=== PATIENT | female | born 1990 | race Caucasian/White ===

== ENCOUNTER 2016-08-05 18:16 | Emergency (ER) | payer OTHER ==
[~2016-08-05] VITALS: Ht 175.2 cm; Wt 90.7 kg
[~2016-08-05 18:16] MED LIST: AMOXICILLIN500 MG PO; AMOXICILLIN875 MG PO; AMOXIL500 MG PO; ATARAX25 MG PO; CARAFATE1 G1 PO; CATAFLAM50 MG PO; CLEOCIN150 MG PO; COMPAZINE10 MG PO; DONNATAL1 CA1 PO; DONNATAL1 TAB PO; FAMOTIDINE20 MG PO; FLEXERIL5 MG PO; IBUPROFEN400 MG PO; IRON324 M1 PO; MACROBID100 M1 PO; MOTRIN800 MG PO; NKHM PO; NORCO 5-325 TA1 EACH PO; PEPCID20 MG PO; PERCOCET 325 MG1 TA2 PO; PHENERGAN12.5 M1 PO; PHENERGAN25 M1 PO; PREDNICOT20 MG PO; PRENATAL1 TA3 PO; PRENTAL 1 PLUS1 TAB PO; PREVACID30 M2 PO; PRILOSEC20 MG PO; PRILOSEC40 MG PO; PROTONIX20 MG PO; SUDAFED60 MG PO; TRAMADOL HCL50 MG PO; ULTRAM50 MG PO; VICODIN 5/500 505 MG PO; ZANTAC 150150 MG PO; ZANTAC150 MG PO; ZOFRAN ODT4 MG SL; Zofran4 MG PO
[2016-08-05] MEDS ORDERED: CYCLOBENZAPRINE10 MG PO (20:23)
[2016-08-05] MEDS ORDERED: MEDROL DOSEPAK4 MG PO (20:23)
[2016-08-05] MEDS ORDERED: NAPROSYN500 MG PO (20:23)
[2016-08-31] MEDS ORDERED: CEFUROXIME AXE250 MG PO (19:36)
[2016-08-31] MEDS ORDERED: ZOFRAN ODT4 MG SL (19:38)
== END 2016-08-05 20:27 | disposition home or self-care (01) ==
LOC: ED 18:16
DX: S33.5XXA Sprain of ligaments of lumbar spine, initial encounter (principal); Z88.1 Allergy status to other antibiotic agents; Z88.2 Allergy status to sulfonamides; Z90.49 Acquired absence of other specified parts of digestive tract; X58.XXXA Exposure to other specified factors, initial encounter; Y93.89 Activity, other specified; Y92.9 Unspecified place or not applicable; Y99.9 Unspecified external cause status

== ENCOUNTER 2017-01-29 20:32 | Emergency (ER) | payer OTHER ==
[~2017-01-29] VITALS: Ht 175.2 cm; Wt 59.0 kg
[~2017-01-29 20:32] MED LIST changes: +CEFUROXIME AXE250 MG PO; +CYCLOBENZAPRINE10 MG PO; +MEDROL DOSEPAK4 MG PO; +NAPROSYN500 MG PO
[2017-01-29 21:16] LABS: BASO # 0.1 10*3/uL (0.0-0.1); BASO % 0.7 % (0.0-1.0); EOS # 0.3 10*3/uL (0.0-0.4); HEMATOCRIT 37.8 % (37.0-47.0); HEMOGLOBIN 12.2 g/dl (12.0-16.0); LYMPH # 4.2 10*3/uL (1.3-4.4); LYMPH % 39.6 % (27.0-41.0); MEAN CELL VOLUME 82.2 fl (81.0-99.0); MEAN CORPUSCULAR HGB 26.5 pg (27.0-31.0); MEAN CORPUSCULAR HGB CONC 32.3 g/dl (33.0-37.0); MEAN PLATELET VOLUME 12.1 fl (9.6-12.3); MONO # 0.7 10*3/uL (0.1-1.0); MONO % 6.6 % (3.0-9.0); NEUT # 5.3 10*3/uL (2.3-7.9); NEUT % 49.9 % (47.0-73.0); PLATELET COUNT AUTOMATED 242 10*3/uL (130-400); RED CELL DISTRI WIDTH 15.5 % (0-14.5); WHITE BLOOD COUNT 10.5 10*3/uL (4.8-10.8)
[2017-01-29 21:21] LABS: BILIRUBIN NEGATIVE (NEGATIVE); BLOOD NEGATIVE (NEGATIVE); CLARITY CLEAR (CLEAR); COLOR YELLOW (YELLOW); GLUCOSE NEGATIVE (NEGATIVE); KETONE NEGATIVE (NEGATIVE); LEUKO ESTERASE 1+ (NEGATIVE); NITRITE POSITIVE (NEGATIVE); PROTEIN NEGATIVE (NEGATIVE); SPECIFIC GRAVITY <= 1.005 (1.005-1.030); UROBILINOGEN 0.2 E.U./dl (0.2-1.0)
[2017-01-29 21:30] LABS: URINE REFLEX COMMENT YES (NO)
[2017-01-29 21:31] LABS: BACTERIA 3+
[2017-01-29 21:31] LABS: ALBUMIN 3.5 gm/dl (3.1-4.5); ALKALINE PHOSPHATASE 77 U/L (45-117); BILIRUBIN, TOTAL 0.4 mg/dl (0.2-1.0); BUN 11 mg/dl (7-24); CARBON DIOXIDE 28 mmol/L (21-32); CHLORIDE 105 mmol/L (98-107); EST GLOM FILT AFRICAN AMERICAN > 60 ml/min; GLUCOSE 89 mg/dL (65-99); POTASSIUM 3.7 mmol/L (3.5-5.1); SGOT/AST 14 IU/L (3-35); SGPT/ALT 17 U/L (12-78); SODIUM 139 mmol/L (136-145)
== END 2017-01-29 21:58 | disposition home or self-care (01) ==
LOC: ED 20:32
PROVIDERS: Physician Assistant
DX: A64 Unspecified sexually transmitted disease (principal); A59.9 Trichomoniasis, unspecified; Z90.49 Acquired absence of other specified parts of digestive tract; Z87.442 Personal history of urinary calculi; Z88.1 Allergy status to other antibiotic agents; Z88.2 Allergy status to sulfonamides

== ENCOUNTER 2017-03-11 02:41 | Emergency (ER) | payer OTHER ==
[~2017-03-11] VITALS: Ht 175.2 cm; Wt 90.7 kg
== END 2017-03-11 04:31 | disposition home or self-care (01) ==
LOC: ED 02:41
DX: R51 Headache (principal); R20.0 Anesthesia of skin; K21.9 Gastro-esophageal reflux disease without esophagitis; F17.200 Nicotine dependence, unspecified, uncomplicated; Z88.1 Allergy status to other antibiotic agents

== ENCOUNTER 2017-04-19 23:28 | Emergency (ER) | payer OTHER ==
[~2017-04-19] VITALS: Ht 175.2 cm; Wt 90.7 kg
== END 2017-04-20 01:01 | disposition home or self-care (01) ==
LOC: ED 23:28
DX: R51 Headache (principal); F17.200 Nicotine dependence, unspecified, uncomplicated; Z90.49 Acquired absence of other specified parts of digestive tract; K21.9 Gastro-esophageal reflux disease without esophagitis; Z88.1 Allergy status to other antibiotic agents; Z88.2 Allergy status to sulfonamides; Y08.89XA Assault by other specified means, initial encounter; Y93.89 Activity, other specified; Y92.9 Unspecified place or not applicable; Y99.9 Unspecified external cause status

== ENCOUNTER 2017-05-09 19:31 | Emergency (ER) | payer OTHER ==
[~2017-05-09] VITALS: Ht 175.2 cm; Wt 68.0 kg
[2017-05-09 20:18] LABS: BILIRUBIN NEGATIVE (NEGATIVE); BLOOD NEGATIVE (NEGATIVE); CLARITY SL CLOUDY (CLEAR); COLOR YELLOW (YELLOW); GLUCOSE NEGATIVE (NEGATIVE); KETONE NEGATIVE (NEGATIVE); LEUKO ESTERASE 1+ (NEGATIVE); NITRITE NEGATIVE (NEGATIVE); SPECIFIC GRAVITY 1.015 (1.005-1.030); UROBILINOGEN 0.2 E.U./dl (0.2-1.0)
[2017-05-09 20:27] LABS: BACTERIA TRACE; EPITHELIAL CELLS 16-20
[2017-05-09] MEDS ORDERED: PROTONIX40 MG PO (20:29)
[2017-05-09] MEDS ORDERED: MACROBID100 M1 PO (20:29)
[2017-05-09 20:39] LABS: BASO # 0.1 10*3/uL (0.0-0.1); BASO % 0.5 % (0.0-1.0); EOS # 0.4 10*3/uL (0.0-0.4); EOS % 4.1 % (1.0-4.0); HEMATOCRIT 36.5 % (37.0-47.0); HEMOGLOBIN 11.7 g/dl (12.0-16.0); LYMPH # 3.7 10*3/uL (1.3-4.4); LYMPH % 35.2 % (27.0-41.0); MEAN CELL VOLUME 84.3 fl (81.0-99.0); MEAN CORPUSCULAR HGB CONC 32.1 g/dl (33.0-37.0); MEAN PLATELET VOLUME 11.9 fl (9.6-12.3); MONO # 0.6 10*3/uL (0.1-1.0); MONO % 5.8 % (3.0-9.0); NEUT # 5.7 10*3/uL (2.3-7.9); NEUT % 54.2 % (47.0-73.0); PLATELET COUNT AUTOMATED 170 10*3/uL (130-400); RED BLOOD COUNT 4.33 10*6/uL (4.10-5.10); RED CELL DISTRI WIDTH 13.9 % (0-14.5); WHITE BLOOD COUNT 10.5 10*3/uL (4.8-10.8)
[2017-05-09 20:53] LABS: ALBUMIN 3.2 gm/dl (3.1-4.5); ALKALINE PHOSPHATASE 79 U/L (45-117); BUN 10 mg/dl (7-24); CHLORIDE 105 mmol/L (98-107); CREATININE 0.93 mg/dL (0.55-1.02); LIPASE 138 U/L (73-393); POTASSIUM 3.8 mmol/L (3.5-5.1); SGOT/AST 13 IU/L (3-35); SGPT/ALT 14 U/L (12-78); SODIUM 140 mmol/L (136-145); TOTAL PROTEIN 6.3 gm/dL (6.4-8.2)
== END 2017-05-09 21:28 | disposition home or self-care (01) ==
LOC: ED 19:31
PROVIDERS: Nurse Practitioner Family
DX: K27.9 Peptic ulcer, site unspecified, unspecified as acute or chronic, without hemorrhage or perforation (principal); N39.0 Urinary tract infection, site not specified; F17.200 Nicotine dependence, unspecified, uncomplicated; Z90.49 Acquired absence of other specified parts of digestive tract; Z88.1 Allergy status to other antibiotic agents; Z88.8 Allergy status to other drugs, medicaments and biological substances

== ENCOUNTER 2017-06-05 14:09 | Emergency (ER) | payer OTHER ==
[~2017-06-05] VITALS: Ht 1798 cm; Wt 59.0 kg
[~2017-06-05 14:09] MED LIST changes: +PROTONIX40 MG PO
[2017-06-05] MEDS ORDERED: PROAIR HFA8.5 GM INH (16:15)
[2017-06-05] MEDS ORDERED: HYCODAN/HYDROMET5 ML PO (16:15)
[2017-06-05] MEDS ORDERED: TESSALON PERLE100 M1 PO (16:15)
== END 2017-06-05 18:29 | disposition home or self-care (01) ==
LOC: ED 14:09
DX: J06.9 Acute upper respiratory infection, unspecified (principal); F17.200 Nicotine dependence, unspecified, uncomplicated; Z88.2 Allergy status to sulfonamides; Z88.8 Allergy status to other drugs, medicaments and biological substances; Z79.899 Other long term (current) drug therapy

== ENCOUNTER 2017-06-10 11:54 | Emergency (ER) | payer OTHER ==
[~2017-06-10] VITALS: Ht 175.2 cm; Wt 68.0 kg
[~2017-06-10 11:54] MED LIST changes: +HYCODAN/HYDROMET5 ML PO; +PROAIR HFA8.5 GM INH; +TESSALON PERLE100 M1 PO
[2017-06-10 12:44] LABS: BASO # 0.1 10*3/uL (0.0-0.1); BASO % 0.6 % (0.0-1.0); EOS # 0.4 10*3/uL (0.0-0.4); EOS % 4.3 % (1.0-4.0); HEMATOCRIT 40.9 % (37.0-47.0); HEMOGLOBIN 13.3 g/dl (12.0-16.0); LYMPH # 2.7 10*3/uL (1.3-4.4); LYMPH % 32.7 % (27.0-41.0); MEAN CORPUSCULAR HGB 27.3 pg (27.0-31.0); MEAN CORPUSCULAR HGB CONC 32.5 g/dl (33.0-37.0); MEAN PLATELET VOLUME 12.2 fl (9.6-12.3); MONO # 0.6 10*3/uL (0.1-1.0); MONO % 7.4 % (3.0-9.0); NEUT # 4.6 10*3/uL (2.3-7.9); NEUT % 54.8 % (47.0-73.0); PLATELET COUNT AUTOMATED 192 10*3/uL (130-400); RED BLOOD COUNT 4.87 10*6/uL (4.10-5.10); RED CELL DISTRI WIDTH 13.9 % (0-14.5); WHITE BLOOD COUNT 8.4 10*3/uL (4.8-10.8)
[2017-06-10 12:52] LABS: ACT PARTIAL THROMBO TIME 26.7 SECONDS (20.8-31.5)
[2017-06-10 12:57] LABS: ALBUMIN 3.4 gm/dl (3.1-4.5); ALKALINE PHOSPHATASE 81 U/L (45-117); BUN 9 mg/dl (7-24); CHLORIDE 104 mmol/L (98-107); CREATININE 0.86 mg/dL (0.55-1.02); POTASSIUM 4.1 mmol/L (3.5-5.1); SGOT/AST 14 IU/L (3-35); SGPT/ALT 17 U/L (12-78); SODIUM 139 mmol/L (136-145); TOTAL PROTEIN 7.2 gm/dL (6.4-8.2)
[2017-06-10] MEDS ORDERED: NAPROSYN500 MG PO (14:07)
[2017-06-10] MEDS ORDERED: ADALAT10 MG PO (14:10)
== END 2017-06-10 14:25 | disposition home or self-care (01) ==
LOC: ED 11:54
PROVIDERS: Nurse Practitioner Family
DX: I73.00 Raynaud's syndrome without gangrene (principal); M25.532 Pain in left wrist; F17.200 Nicotine dependence, unspecified, uncomplicated; K21.9 Gastro-esophageal reflux disease without esophagitis; Z88.1 Allergy status to other antibiotic agents; Z90.49 Acquired absence of other specified parts of digestive tract; Z88.8 Allergy status to other drugs, medicaments and biological substances; Z79.899 Other long term (current) drug therapy

== ENCOUNTER 2017-07-08 17:54 | Emergency (ER) | payer OTHER ==
[~2017-07-08] VITALS: Ht 175.2 cm; Wt 68.0 kg
[~2017-07-08 17:54] MED LIST changes: +ADALAT10 MG PO
[2017-07-08] MEDS ORDERED: CYCLOBENZAPRINE5 M3 PO (20:12)
[2017-07-08] MEDS ORDERED: NAPROSYN500 MG PO (20:12)
[2017-07-08] MEDS ORDERED: MEDROL DOSEPAK4 MG PO (20:12)
== END 2017-07-08 20:16 | disposition home or self-care (01) ==
LOC: ED 17:54
DX: M54.42 Lumbago with sciatica, left side (principal); F17.200 Nicotine dependence, unspecified, uncomplicated; K21.9 Gastro-esophageal reflux disease without esophagitis; Z87.11 Personal history of peptic ulcer disease; Z90.49 Acquired absence of other specified parts of digestive tract; Z79.899 Other long term (current) drug therapy; Z88.1 Allergy status to other antibiotic agents; Z88.8 Allergy status to other drugs, medicaments and biological substances

== ENCOUNTER 2017-11-07 22:06 | Emergency (ER) | payer OTHER ==
[~2017-11-07] VITALS: Ht 177.8 cm; Wt 90.7 kg
[~2017-11-07 22:06] MED LIST changes: +CYCLOBENZAPRINE5 M3 PO
[2017-11-07 22:55] LABS: BASO # 0.1 10*3/uL (0.0-0.1); BASO % 0.4 % (0.0-1.0); EOS # 0.2 10*3/uL (0.0-0.4); EOS % 1.7 % (1.0-4.0); HEMOGLOBIN 13.4 g/dl (12.0-16.0); LYMPH # 3.2 10*3/uL (1.3-4.4); MEAN CELL VOLUME 83.7 fl (81.0-99.0); MEAN CORPUSCULAR HGB CONC 33.5 g/dl (33.0-37.0); MEAN PLATELET VOLUME 11.6 fl (9.6-12.3); MONO # 0.9 10*3/uL (0.1-1.0); MONO % 6.6 % (3.0-9.0); NEUT # 8.8 10*3/uL (2.3-7.9); NEUT % 66.9 % (47.0-73.0); PLATELET COUNT AUTOMATED 195 10*3/uL (130-400); RED BLOOD COUNT 4.78 10*6/uL (4.10-5.10); RED CELL DISTRI WIDTH 13.6 % (0-14.5); WHITE BLOOD COUNT 13.1 10*3/uL (4.8-10.8)
[2017-11-07 23:13] LABS: BILIRUBIN NEGATIVE (NEGATIVE); BLOOD NEGATIVE (NEGATIVE); CLARITY CLEAR (CLEAR); COLOR YELLOW (YELLOW); GLUCOSE NEGATIVE (NEGATIVE); KETONE NEGATIVE (NEGATIVE); LEUKO ESTERASE 1+ (NEGATIVE); NITRITE NEGATIVE (NEGATIVE); PH 6.5 (5.0-9.0); SPECIFIC GRAVITY <= 1.005 (1.005-1.030); UROBILINOGEN 0.2 E.U./dl (0.2-1.0)
[2017-11-07 23:17] LABS: ALKALINE PHOSPHATASE 75 U/L (45-117); BUN 17 mg/dl (7-24); CHLORIDE 103 mmol/L (98-107); CREATININE 0.88 mg/dL (0.55-1.02); LIPASE 110 U/L (73-393); SGOT/AST 16 IU/L (3-35); SGPT/ALT 16 U/L (12-78); SODIUM 137 mmol/L (136-145); TOTAL PROTEIN 7.7 gm/dL (6.4-8.2)
[2017-11-07 23:22] LABS: URINE AMPHETAMINES < 1000 (1000ng/ml); URINE BARBITURATES < 200 (200ng/ml); URINE BENZODIAZEPINES < 200 (200ng/ml); URINE CANNABINOIDS (THC) > 50 (50ng/ml); URINE COCAINE < 300 (300ng/ml); URINE METHADONE < 300 (300ng/ml); URINE OPIATES < 300 (300ng/ml)
[2017-11-07 23:23] LABS: URINE PHENCYCLIDINE < 25 (25ng/ml)
[2017-11-07 23:23] LABS: BETA-HCG, QUANT < 1.0 mIU/mL (1-3)
[2017-11-07 23:28] LABS: EPITHELIAL CELLS 15-20; WBC 16-20 wbc/hpf (0-5)
[2017-11-07 23:29] LABS: BACTERIA TRACE
== END 2017-11-07 23:43 | disposition home or self-care (01) ==
LOC: ED 22:06
PROVIDERS: Student in an Organized Health Care Education/Training Program
DX: R10.9 Unspecified abdominal pain (principal); F41.9 Anxiety disorder, unspecified; K21.9 Gastro-esophageal reflux disease without esophagitis; Z88.2 Allergy status to sulfonamides; Z90.49 Acquired absence of other specified parts of digestive tract

== ENCOUNTER 2017-11-30 17:56 | Emergency (ER) | payer OTHER ==
[~2017-11-30] VITALS: Ht 172.7 cm; Wt 81.6 kg
[2017-11-30 18:30] LABS: BASO # 0.1 10*3/uL (0.0-0.1); BASO % 0.5 % (0.0-1.0); EOS # 0.4 10*3/uL (0.0-0.4); HEMATOCRIT 36.1 % (37.0-47.0); HEMOGLOBIN 11.8 g/dl (12.0-16.0); LYMPH % 27.5 % (27.0-41.0); MEAN CORPUSCULAR HGB 28.1 pg (27.0-31.0); MEAN CORPUSCULAR HGB CONC 32.7 g/dl (33.0-37.0); MEAN PLATELET VOLUME 11.5 fl (9.6-12.3); MONO # 0.9 10*3/uL (0.1-1.0); NEUT # 9.1 10*3/uL (2.3-7.9); NEUT % 62.7 % (47.0-73.0); PLATELET COUNT AUTOMATED 191 10*3/uL (130-400); RED CELL DISTRI WIDTH 14.2 % (0-14.5); WHITE BLOOD COUNT 14.5 10*3/uL (4.8-10.8)
[2017-11-30 18:45] LABS: ALBUMIN 3.5 gm/dl (3.1-4.5); ALKALINE PHOSPHATASE 77 U/L (45-117); BUN 9 mg/dl (7-24); CHLORIDE 104 mmol/L (98-107); LIPASE 81 U/L (73-393); SGOT/AST 14 IU/L (3-35); SGPT/ALT 16 U/L (12-78); SODIUM 139 mmol/L (136-145); TOTAL PROTEIN 6.6 gm/dL (6.4-8.2)
[2017-11-30 18:46] LABS: BILIRUBIN NEGATIVE (NEGATIVE); BLOOD NEGATIVE (NEGATIVE); CLARITY CLEAR (CLEAR); COLOR YELLOW (YELLOW); GLUCOSE NEGATIVE (NEGATIVE); KETONE NEGATIVE (NEGATIVE); LEUKO ESTERASE 1+ (NEGATIVE); NITRITE NEGATIVE (NEGATIVE); SPECIFIC GRAVITY 1.015 (1.005-1.030); UROBILINOGEN 0.2 E.U./dl (0.2-1.0)
[2017-11-30 19:00] LABS: BACTERIA 1+; EPITHELIAL CELLS 60-70; RBC 0-2 rbc/hpf (0-2); WBC 16-20 wbc/hpf (0-5)
[2017-11-30] MEDS ORDERED: MACROBID100 M1 PO (19:12)
[2017-11-30] MEDS ORDERED: PYRIDIUM200 M1 PO (19:12)
== END 2017-11-30 19:17 | disposition home or self-care (01) ==
LOC: ED 17:56
PROVIDERS: Nurse Practitioner Family
DX: N39.0 Urinary tract infection, site not specified (principal); Z98.51 Tubal ligation status; Z90.49 Acquired absence of other specified parts of digestive tract; Z79.899 Other long term (current) drug therapy; Z88.1 Allergy status to other antibiotic agents; Z88.8 Allergy status to other drugs, medicaments and biological substances

== ENCOUNTER 2018-01-11 15:37 | Emergency (ER) | payer OTHER ==
[~2018-01-11] VITALS: Ht 172.7 cm; Wt 77.1 kg
[~2018-01-11 15:37] MED LIST changes: +PYRIDIUM200 M1 PO
[2018-01-11] MEDS ORDERED: MEDROL DOSEPAK4 MG PO (17:24)
[2018-01-11] MEDS ORDERED: ROBITUSSIN DM 105 ML PO (17:24)
[2018-01-11] MEDS ORDERED: AMOXICILLIN500 M2 PO (17:24)
== END 2018-01-11 17:32 | disposition home or self-care (01) ==
LOC: ED 15:37
DX: J20.9 Acute bronchitis, unspecified (principal); F17.200 Nicotine dependence, unspecified, uncomplicated; Z90.49 Acquired absence of other specified parts of digestive tract; Z98.890 Other specified postprocedural states; Z88.1 Allergy status to other antibiotic agents; Z88.8 Allergy status to other drugs, medicaments and biological substances

== ENCOUNTER 2018-02-18 21:00 | Inpatient (IN) | payer OTHER ==
[~2018-02-18] VITALS: Ht 175.2 cm; Wt 87.7 kg
--- NOTE | ~2018-02-18 | EKG ---
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 Electronically Signed On 02-19-2018 15:51:12 PDT by Jean Marie Nelson MD CM:EKGRPT:ELECTROCARDIOGRAM REPORT [id number] STEFANIE ONEAL PA-C EPIPHANY DRAFT REPORT STEFANIE ONEAL PA-C
--- NOTE | ~2018-02-18 | EKG ---
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
--- NOTE | ~2018-02-18 | EKG ---
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
--- NOTE | ~2018-02-18 | O ---
[place], [place] OPERATIVE NOTE NAME: ABHISHEK REYES [facility] #: [id number] UNIT #: [id number] ROOM: 532 DOCTOR: GARRICK HANEY MD BIRTHDATE: [birth year] DOS: 02/20/2018 PREOPERATIVE DIAGNOSIS: Acute appendicitis. POSTOPERATIVE DIAGNOSIS: Acute appendicitis. PROCEDURE: Laparoscopic appendectomy. SURGEON: Garrick Haney MD LIFE SCIENCE RESEARCH ASSISTANT: MARINO. ANESTHESIA: General with endotracheal intubation. INDICATIONS: This is a 27-year-old lady admitted with acute appendicitis. It was initially treated with IV antibiotics, but overnight she developed increasing nausea and vomiting and therefore it was decided to take the patient to the operating room for a laparoscopic possible open appendectomy. The procedure and its complications were explained to the patient in detail preoperatively. Complications that were discussed included but were not limited to bleeding, infection, hematoma/seroma/abscess formation and postoperative pain, damage to lying vital structures, inadvertent injury to surrounding vital structures and incisional hernia formation. She agreed to proceed. DESCRIPTION OF PROCEDURE: After identifying the patient, the patient was brought to the operating suite and laid in the supine position. After induction of general anesthesia, the patient's upper extremities were tucked to her side and the parts were then painted and draped in the usual sterile fashion. A time-out procedure was called. An incision was made below the umbilicus in a transverse fashion. The skin and the subcutaneous tissue were incised. The fascia was incised vertically and 2 stay sutures with 0 Vicryl were taken on either side. A 12 mm José Miguel port was introduced into the peritoneal cavity and a pneumoperitoneum was created. Under direct vision, a left lower quadrant incision of 10 mm and one 5 mm incision was made in the suprapubic region and appropriate size ports were removed. The patient was placed in a Trendelenburg, right side up position. The appendix was found to be inflamed and it was held up with the help of an Endo Sugar forceps. The base of the appendix as well as the mesoappendix was stapled across with the help of Endo-KEON stapler. The appendix was then placed in a specimen bag and removed from the peritoneal cavity and sent for histopathological diagnosis. Hemostasis was confirmed in the base of the appendix as well as the mesoappendix and saline was used for irrigation. After hemostasis was confirmed, the suprapubic and the left lower quadrant ports were removed and there was no bleeding seen. The umbilical port was also removed and the pneumoperitoneum was decompressed. The stay sutures were tied together and an additional #0 Vicryl stitch was used to approximate the fascia. Edges of the skin were approximated with 4-0 Vicryl in a subcuticular running fashion after the edges were infiltrated with 1% plain lidocaine. Dressings were placed. The patient tolerated the procedure well and was extubated uneventfully and brought back to the recovery in a stable fashion. There were no complications. Dr. Garrick Haney, the attending surgeon, was [place], [place] OPERATIVE NOTE NAME: AMYABHISHEK M UNIT #: [id number] ROOM: [facility] DOCTOR: GARRICK HANEY MD BIRTHDATE: [birth year] present throughout the operating case. Garrick Haney MD CM:OPRECORD:OPERATIVE NOTE [id number] GARRICK HANEY MD 02/20/18 1316 interface
[~2018-02-18 21:00] MED LIST changes: +AMOXICILLIN500 M2 PO; +ROBITUSSIN DM 105 ML PO
[2018-02-18 21:24] LABS: BASO # 0.1 10*3/uL (0.0-0.1); BASO % 0.4 % (0.0-1.0); EOS # 0.2 10*3/uL (0.0-0.4); EOS % 1.7 % (1.0-4.0); HEMATOCRIT 38.1 % (37.0-47.0); HEMOGLOBIN 12.2 g/dl (12.0-16.0); LYMPH # 3.5 10*3/uL (1.3-4.4); LYMPH % 25.2 % (27.0-41.0); MEAN CELL VOLUME 86.2 fl (81.0-99.0); MEAN CORPUSCULAR HGB 27.6 pg (27.0-31.0); MEAN PLATELET VOLUME 12.6 fl (9.6-12.3); MONO # 0.7 10*3/uL (0.1-1.0); MONO % 5.1 % (3.0-9.0); NEUT # 9.3 10*3/uL (2.3-7.9); NEUT % 67.3 % (47.0-73.0); PLATELET COUNT AUTOMATED 191 10*3/uL (130-400); RED BLOOD COUNT 4.42 10*6/uL (4.10-5.10); RED CELL DISTRI WIDTH 13.6 % (0-14.5); WHITE BLOOD COUNT 13.8 10*3/uL (4.8-10.8)
[2018-02-18 21:34] LABS: ACT PARTIAL THROMBO TIME 24.7 SECONDS (20.8-31.5); INTERNATIONAL NORM RATIO 1.1 (2.0-3.5)
[2018-02-18 21:42] LABS: ALBUMIN 3.6 gm/dl (3.1-4.5); ALKALINE PHOSPHATASE 69 U/L (45-117); BUN 11 mg/dl (7-24); CHLORIDE 105 mmol/L (98-107); CREATININE 0.86 mg/dL (0.55-1.02); POTASSIUM 3.7 mmol/L (3.5-5.1); SGOT/AST 25 IU/L (3-35); SGPT/ALT 15 U/L (12-78); SODIUM 138 mmol/L (136-145); TOTAL PROTEIN 6.9 gm/dL (6.4-8.2)
[2018-02-18 21:43] LABS: TROPONIN I < 0.015 ng/ml (<0.045)
[2018-02-18 21:51] LABS: BILIRUBIN 1+ (NEGATIVE); BLOOD NEGATIVE (NEGATIVE); CLARITY CLOUDY (CLEAR); COLOR YELLOW (YELLOW); GLUCOSE NEGATIVE (NEGATIVE); KETONE 1+ (NEGATIVE); LEUKO ESTERASE TRACE (NEGATIVE); NITRITE POSITIVE (NEGATIVE); SPECIFIC GRAVITY >= 1.030 (1.005-1.030)
[2018-02-18 21:58] LABS: BACTERIA 4+; CALCIUM OXALATE CRYSTALS 1+; MUCOUS TRACE; RBC 0-2 rbc/hpf (0-2)
[2018-02-18 22:47] VITALS: BP 113/70
[2018-02-19] VITALS (7 sets, daily range): BP systolic 103–128; BP diastolic 58–75
[2018-02-19 03:19] LABS: BASO # 0.1 10*3/uL (0.0-0.1); BASO % 0.5 % (0.0-1.0); EOS # 0.2 10*3/uL (0.0-0.4); HEMATOCRIT 34.5 % (37.0-47.0); HEMOGLOBIN 10.9 g/dl (12.0-16.0); LYMPH % 27.7 % (27.0-41.0); MEAN CELL VOLUME 87.8 fl (81.0-99.0); MEAN CORPUSCULAR HGB 27.7 pg (27.0-31.0); MEAN CORPUSCULAR HGB CONC 31.6 g/dl (33.0-37.0); MEAN PLATELET VOLUME 12.6 fl (9.6-12.3); MONO # 0.8 10*3/uL (0.1-1.0); NEUT # 6.8 10*3/uL (2.3-7.9); NEUT % 62.5 % (47.0-73.0); RED BLOOD COUNT 3.93 10*6/uL (4.10-5.10); RED CELL DISTRI WIDTH 13.4 % (0-14.5); WHITE BLOOD COUNT 10.9 10*3/uL (4.8-10.8)
[2018-02-19 03:22] LABS: BUN 11 mg/dl (7-24); CHLORIDE 110 mmol/L (98-107); POTASSIUM 3.7 mmol/L (3.5-5.1); SODIUM 142 mmol/L (136-145)
[2018-02-19 03:25] LABS: PLATELET COUNT AUTOMATED 127 10*3/uL (130-400)
[2018-02-19 03:26] LABS: CHOLESTEROL 105 mg/dL (<200); HDL CHOLESTEROL 36 mg/dl (40-60); LDL CHOLESTEROL 60 mg/dL (9-159); PHOSPHOROUS 3.6 mg/dL (2.5-4.9); TRIGLYCERIDES 43 mg/dl (<150); VLDL CHOLESTEROL 9 mg/dL (6-40)
[2018-02-19 07:55] LABS: VITAMIN D, 25-HYDROXY 34.4 ng/mL (30-100)
[2018-02-20] VITALS (12 sets, daily range): BP systolic 103–117; BP diastolic 56–67
[2018-02-20 06:27] LABS: BASO # 0.1 10*3/uL (0.0-0.1); BASO % 0.5 % (0.0-1.0); EOS # 0.1 10*3/uL (0.0-0.4); EOS % 1.3 % (1.0-4.0); HEMATOCRIT 34.4 % (37.0-47.0); HEMOGLOBIN 10.8 g/dl (12.0-16.0); LYMPH # 2.2 10*3/uL (1.3-4.4); LYMPH % 23.7 % (27.0-41.0); MEAN CELL VOLUME 87.5 fl (81.0-99.0); MEAN CORPUSCULAR HGB 27.5 pg (27.0-31.0); MEAN CORPUSCULAR HGB CONC 31.4 g/dl (33.0-37.0); MEAN PLATELET VOLUME 13.3 fl (9.6-12.3); MONO # 0.4 10*3/uL (0.1-1.0); MONO % 4.8 % (3.0-9.0); NEUT # 6.4 10*3/uL (2.3-7.9); NEUT % 69.5 % (47.0-73.0); PLATELET COUNT AUTOMATED 118 10*3/uL (130-400); RED BLOOD COUNT 3.93 10*6/uL (4.10-5.10); RED CELL DISTRI WIDTH 13.2 % (0-14.5); WHITE BLOOD COUNT 9.2 10*3/uL (4.8-10.8)
[2018-02-20 06:41] LABS: BUN 9 mg/dl (7-24); CHLORIDE 107 mmol/L (98-107); CREATININE 0.64 mg/dL (0.55-1.02); POTASSIUM 3.9 mmol/L (3.5-5.1); SODIUM 138 mmol/L (136-145)
[2018-02-21] VITALS: BP 111/62
[2018-02-21 08:00] VITALS: BP 117/75
[2018-02-21 08:01] VITALS: BP 116/72
[2018-02-21 12:00] VITALS: BP 105/65
[2018-02-21] MEDS ORDERED: NORCO 5-325 TA1 EACH PO (13:27)
== END 2018-02-21 15:05 | disposition home or self-care (01) | DRG 339 ==
LOC: ED 21:00 → EDHOLD 02-19 00:33 → 5E 02-19 00:33
PROVIDERS: Internal Medicine; Physician Assistant; Student in an Organized Health Care Education/Training Program
PROC: 0DTJ4ZZ Resection of Appendix, Percutaneous Endoscopic Approach (ICD-10-PCS; principal; 2018-02-20)
DX: K35.3 Acute appendicitis with localized peritonitis (principal); N39.0 Urinary tract infection, site not specified; D72.810 Lymphocytopenia; D72.829 Elevated white blood cell count, unspecified; R79.82 Elevated C-reactive protein (CRP); R82.71 Bacteriuria; F41.9 Anxiety disorder, unspecified; K21.9 Gastro-esophageal reflux disease without esophagitis; Z90.49 Acquired absence of other specified parts of digestive tract; Z87.440 Personal history of urinary (tract) infections; Z98.51 Tubal ligation status; Z88.8 Allergy status to other drugs, medicaments and biological substances; Z88.2 Allergy status to sulfonamides; Z79.899 Other long term (current) drug therapy; Z82.49 Family history of ischemic heart disease and other diseases of the circulatory system; Z82.3 Family history of stroke; Z72.0 Tobacco use; Z71.6 Tobacco abuse counseling; Z87.11 Personal history of peptic ulcer disease

== ENCOUNTER 2018-06-14 17:05 | Emergency (ER) | payer OTHER ==
[~2018-06-14] VITALS: Wt 79.4 kg
[2018-06-14 17:48] LABS: BASO # 0.1 10*3/uL (0.0-0.1); BASO % 0.6 % (0.0-1.0); EOS # 0.3 10*3/uL (0.0-0.4); EOS % 3.9 % (1.0-4.0); HEMATOCRIT 38.2 % (37.0-47.0); HEMOGLOBIN 12.4 g/dl (12.0-16.0); LYMPH # 2.6 10*3/uL (1.3-4.4); LYMPH % 30.1 % (27.0-41.0); MEAN CELL VOLUME 86.4 fl (81.0-99.0); MEAN CORPUSCULAR HGB 28.1 pg (27.0-31.0); MEAN CORPUSCULAR HGB CONC 32.5 g/dl (33.0-37.0); MEAN PLATELET VOLUME 11.6 fl (9.6-12.3); MONO # 0.7 10*3/uL (0.1-1.0); MONO % 7.8 % (3.0-9.0); NEUT % 57.3 % (47.0-73.0); PLATELET COUNT AUTOMATED 170 10*3/uL (130-400); RED BLOOD COUNT 4.42 10*6/uL (4.10-5.10); WHITE BLOOD COUNT 8.8 10*3/uL (4.8-10.8)
[2018-06-14 18:02] LABS: ALBUMIN 3.2 gm/dl (3.1-4.5); ALKALINE PHOSPHATASE 66 U/L (45-117); BUN 10 mg/dl (7-24); CHLORIDE 107 mmol/L (98-107); CREATININE 0.87 mg/dL (0.55-1.02); SGOT/AST 10 IU/L (3-35); SGPT/ALT 14 U/L (12-78); SODIUM 140 mmol/L (136-145); TOTAL PROTEIN 6.9 gm/dL (6.4-8.2)
[2018-06-14 18:14] LABS: BILIRUBIN NEGATIVE (NEGATIVE); BLOOD NEGATIVE (NEGATIVE); CLARITY CLEAR (CLEAR); COLOR YELLOW (YELLOW); GLUCOSE NEGATIVE (NEGATIVE); KETONE NEGATIVE (NEGATIVE); LEUKO ESTERASE TRACE (NEGATIVE); NITRITE NEGATIVE (NEGATIVE); UROBILINOGEN 0.2 E.U./dl (0.2-1.0)
[2018-06-14 18:22] LABS: BACTERIA 4+
[2018-06-14] MEDS ORDERED: TESSALON PERLE100 M1 PO (18:56)
[2018-06-14] MEDS ORDERED: ZITHROMAX250 MG PO (18:56)
[2018-06-14] MEDS ORDERED: DELTASONE20 M1 PO (18:56)
[2018-06-14] MEDS ORDERED: PROVENTIL HFA6.7 GM INH (18:56)
== END 2018-06-14 19:05 | disposition home or self-care (01) ==
LOC: ED 17:05
PROVIDERS: Physician Assistant
DX: J40 Bronchitis, not specified as acute or chronic (principal); R11.2 Nausea with vomiting, unspecified; F17.200 Nicotine dependence, unspecified, uncomplicated; Z88.2 Allergy status to sulfonamides; Z90.49 Acquired absence of other specified parts of digestive tract

== ENCOUNTER 2018-08-07 15:33 | Emergency (ER) | payer OTHER ==
[~2018-08-07] VITALS: Wt 90.7 kg
[~2018-08-07 15:33] MED LIST changes: +DELTASONE20 M1 PO; +PROVENTIL HFA6.7 GM INH; +ZITHROMAX250 MG PO
[2018-08-07] MEDS ORDERED: IBUPROFEN600 MG PO (16:45)
[2018-08-07] MEDS ORDERED: DOXYCYCLINE100 M3 PO (16:45)
[2018-10-13] MEDS ORDERED: FLONASE ALLERG9.9 ML NAS (02:08)
[2018-10-13] MEDS ORDERED: AMOXICILLIN500 M2 PO (02:08)
== END 2018-08-07 17:15 | disposition home or self-care (01) ==
LOC: ED 15:33
DX: N76.4 Abscess of vulva (principal); F17.200 Nicotine dependence, unspecified, uncomplicated; Z88.2 Allergy status to sulfonamides

== ENCOUNTER 2018-09-11 15:40 | Emergency (ER) | payer OTHER ==
[~2018-09-11] VITALS: Ht 175.2 cm; Wt 90.7 kg
[~2018-09-11 15:40] MED LIST changes: +DOXYCYCLINE100 M3 PO; +IBUPROFEN600 MG PO
[2018-09-11] MEDS ORDERED: NAPROSYN500 MG PO (16:48)
[2018-10-13] MEDS ORDERED: AMOXICILLIN500 M2 PO (02:08)
[2018-10-13] MEDS ORDERED: FLONASE ALLERG9.9 ML NAS (02:08)
== END 2018-09-11 17:10 | disposition home or self-care (01) ==
LOC: ED 15:40
DX: S93.602A Unspecified sprain of left foot, initial encounter (principal); K21.9 Gastro-esophageal reflux disease without esophagitis; F17.200 Nicotine dependence, unspecified, uncomplicated; Z88.2 Allergy status to sulfonamides; Z79.2 Long term (current) use of antibiotics; Z79.899 Other long term (current) drug therapy; Z90.49 Acquired absence of other specified parts of digestive tract; X50.1XXA Overexertion from prolonged static or awkward postures, initial encounter; Y93.89 Activity, other specified; Y92.098 Other place in other non-institutional residence as the place of occurrence of the external cause; Y99.8 Other external cause status

== ENCOUNTER 2018-10-24 12:22 | Emergency (ER) | payer OTHER ==
[~2018-10-24] VITALS: Ht 175.2 cm; Wt 90.7 kg
[~2018-10-24 12:22] MED LIST changes: +FLONASE ALLERG9.9 ML NAS
[2018-10-24 12:46] LABS: BASO % 0.4 % (0.0-1.0); EOS # 0.2 10*3/uL (0.0-0.4); EOS % 1.9 % (1.0-4.0); HEMATOCRIT 40.8 % (37.0-47.0); HEMOGLOBIN 13.3 g/dl (12.0-16.0); LYMPH # 2.5 10*3/uL (1.3-4.4); LYMPH % 24.6 % (27.0-41.0); MEAN CELL VOLUME 89.1 fl (81.0-99.0); MEAN CORPUSCULAR HGB CONC 32.6 g/dl (33.0-37.0); MEAN PLATELET VOLUME 11.6 fl (9.6-12.3); MONO # 1.1 10*3/uL (0.1-1.0); MONO % 10.9 % (3.0-9.0); NEUT # 6.4 10*3/uL (2.3-7.9); NEUT % 61.8 % (47.0-73.0); PLATELET COUNT AUTOMATED 170 10*3/uL (130-400); RED BLOOD COUNT 4.58 10*6/uL (4.10-5.10); RED CELL DISTRI WIDTH 14.6 % (0-14.5); WHITE BLOOD COUNT 10.3 10*3/uL (4.8-10.8)
[2018-10-24 13:11] LABS: BILIRUBIN NEGATIVE (NEGATIVE); BLOOD NEGATIVE (NEGATIVE); CLARITY CLOUDY (CLEAR); COLOR YELLOW (YELLOW); GLUCOSE NEGATIVE (NEGATIVE); KETONE NEGATIVE (NEGATIVE); LEUKO ESTERASE TRACE (NEGATIVE); NITRITE NEGATIVE (NEGATIVE); PH 6.5 (5.0-9.0); SPECIFIC GRAVITY <= 1.005 (1.005-1.030)
[2018-10-24 13:19] LABS: ALBUMIN 3.5 gm/dl (3.1-4.5); ALKALINE PHOSPHATASE 70 U/L (45-117); BUN 8 mg/dl (7-24); CHLORIDE 108 mmol/L (98-107); CREATININE 0.87 mg/dL (0.55-1.02); LIPASE 51 U/L (73-393); POTASSIUM 3.5 mmol/L (3.5-5.1); SGOT/AST 13 IU/L (3-35); SGPT/ALT 13 U/L (12-78); SODIUM 139 mmol/L (136-145)
[2018-10-24 13:25] LABS: BACTERIA 4+; WBC 16-20 wbc/hpf (0-5)
[2018-10-24 13:26] LABS: EPITHELIAL CELLS 30-40
[2018-10-24] MEDS ORDERED: ZOFRAN4 MG PO (13:37)
== END 2018-10-24 13:38 | disposition home or self-care (01) ==
LOC: ED 12:22
PROVIDERS: Nurse Practitioner Family
DX: A08.4 Viral intestinal infection, unspecified (principal); F17.200 Nicotine dependence, unspecified, uncomplicated; Z90.49 Acquired absence of other specified parts of digestive tract; Z88.2 Allergy status to sulfonamides

== ENCOUNTER 2020-05-06 18:56 | Emergency (ER) | payer OTHER ==
[~2020-05-06] VITALS: Ht 175.2 cm; Wt 113.4 kg
[~2020-05-06 18:56] MED LIST changes: +ZOFRAN4 MG PO
[2020-05-06] MEDS ORDERED: NAPROSYN500 MG PO (21:42)
== END 2020-05-06 21:35 | disposition home or self-care (01) ==
LOC: ED 18:56
DX: S60.222A Contusion of left hand, initial encounter (principal); S80.212A Abrasion, left knee, initial encounter; K21.9 Gastro-esophageal reflux disease without esophagitis; Z88.8 Allergy status to other drugs, medicaments and biological substances; Z88.2 Allergy status to sulfonamides; Z79.899 Other long term (current) drug therapy; W19.XXXA Unspecified fall, initial encounter; Y93.89 Activity, other specified; Y92.89 Other specified places as the place of occurrence of the external cause; Y99.8 Other external cause status

== ENCOUNTER 2020-07-04 03:06 | Emergency (ER) | payer OTHER ==
[~2020-07-04] VITALS: Wt 97.5 kg
== END 2020-07-04 03:50 | disposition home or self-care (01) ==
LOC: ED 03:06
DX: R07.89 Other chest pain (principal); Z88.2 Allergy status to sulfonamides; Z88.8 Allergy status to other drugs, medicaments and biological substances; Z79.899 Other long term (current) drug therapy

== ENCOUNTER 2020-08-27 16:34 | Emergency (ER) | payer OTHER ==
[~2020-08-27] VITALS: Ht 177.8 cm; Wt 90.7 kg
== END 2020-08-27 17:45 | disposition home or self-care (01) ==
LOC: ED 16:34
DX: R51.9 Headache, unspecified (principal); K21.9 Gastro-esophageal reflux disease without esophagitis; F17.200 Nicotine dependence, unspecified, uncomplicated; Z79.899 Other long term (current) drug therapy; Z88.2 Allergy status to sulfonamides; Z88.8 Allergy status to other drugs, medicaments and biological substances

== ENCOUNTER → 2020-12-24 | Outpatient (CLI) | payer OTHER | END | disposition home or self-care (01) | LOC: RAD 16:47 | PROVIDERS: ATTEND Chiropractor Orthopedic | DX: M43.8X6 Other specified deforming dorsopathies, lumbar region (principal); M99.03 Segmental and somatic dysfunction of lumbar region ==

== ENCOUNTER 2020-12-26 17:45 | Emergency (ER) | payer OTHER ==
[~2020-12-26] VITALS: Ht 175.2 cm; Wt 99.8 kg
[2020-12-26] MEDS ORDERED: MEDROL DOSEPAK4 MG PO (20:22)
[2020-12-26] MEDS ORDERED: CYCLOBENZAPRINE5 M3 PO (20:22)
== END 2020-12-26 21:32 | disposition home or self-care (01) ==
LOC: ED 17:45
DX: M54.5 Low back pain (principal); G89.29 Other chronic pain; F17.200 Nicotine dependence, unspecified, uncomplicated; Z88.2 Allergy status to sulfonamides; Z79.899 Other long term (current) drug therapy; Z98.1 Arthrodesis status; Z90.49 Acquired absence of other specified parts of digestive tract

== ENCOUNTER 2021-03-01 15:04 | Emergency (ER) | payer OTHER ==
[~2021-03-01] VITALS: Ht 175.2 cm; Wt 102.1 kg
[2021-03-01 15:42] LABS: BASO # 0.1 10*3/uL (0.0-0.1); BASO % 0.8 % (0.0-1.0); EOS # 0.5 10*3/uL (0.0-0.4); EOS % 5.7 % (1.0-4.0); HEMATOCRIT 37.8 % (37.0-47.0); LYMPH # 2.4 10*3/uL (1.3-4.4); LYMPH % 30.3 % (27.0-41.0); MEAN CELL VOLUME 88.7 fl (81.0-99.0); MEAN CORPUSCULAR HGB 28.2 pg (27.0-31.0); MEAN CORPUSCULAR HGB CONC 31.7 g/dl (33.0-37.0); MEAN PLATELET VOLUME 11.4 fl (9.6-12.3); MONO # 0.5 10*3/uL (0.1-1.0); MONO % 6.1 % (3.0-9.0); NEUT # 4.5 10*3/uL (2.3-7.9); NEUT % 56.8 % (47.0-73.0); PLATELET COUNT AUTOMATED 197 10*3/uL (130-400); RED BLOOD COUNT 4.26 10*6/uL (4.10-5.10); RED CELL DISTRI WIDTH 14.2 % (0-14.5); WHITE BLOOD COUNT 7.9 10*3/uL (4.8-10.8)
[2021-03-01 15:58] LABS: ALBUMIN 3.2 gm/dl (3.1-4.5); ALKALINE PHOSPHATASE 75 U/L (45-117); BUN 9 mg/dl (7-24); CHLORIDE 111 mmol/L (98-107); CREATININE 0.93 mg/dL (0.55-1.02); POTASSIUM 4.1 mmol/L (3.5-5.1); SGOT/AST 11 IU/L (3-35); SGPT/ALT 17 U/L (12-78); SODIUM 143 mmol/L (136-145); TOTAL PROTEIN 6.2 gm/dL (6.4-8.2)
[2021-03-01 16:00] LABS: ETHYL ALCOHOL < 3.0 mg/dl (<3)
[2021-03-01 17:04] LABS: BILIRUBIN Negative (Negative); BLOOD Negative (Negative); CLARITY Cloudy (Clear); COLOR Yellow (Yellow); GLUCOSE Negative (Negative); KETONE Negative (Negative); LEUKO ESTERASE 2+ (Negative); NITRITE Positive (Negative); PH 6.5 (4.5-8.0)
[2021-03-01 17:11] LABS: URINE AMPHETAMINES < 1000 (1000ng/ml); URINE BARBITURATES < 200 (200ng/ml); URINE BENZODIAZEPINES < 200 (200ng/ml); URINE CANNABINOIDS (THC) > 50 (50ng/ml); URINE COCAINE > 300 (300ng/ml); URINE METHADONE < 300 (300ng/ml); URINE OPIATES < 300 (300ng/ml)
[2021-03-01 17:12] LABS: BACTERIA 4+; MUCOUS TRACE; URINE PHENCYCLIDINE < 25 (25ng/ml)
== END 2021-03-01 18:26 | disposition home or self-care (01) ==
LOC: ED 15:04
PROVIDERS: Emergency Medicine
DX: F43.21 Adjustment disorder with depressed mood (principal); Z20.822 Contact with and (suspected) exposure to COVID-19; F41.9 Anxiety disorder, unspecified; K21.9 Gastro-esophageal reflux disease without esophagitis; F17.200 Nicotine dependence, unspecified, uncomplicated; Z88.2 Allergy status to sulfonamides; Z79.899 Other long term (current) drug therapy; Z87.442 Personal history of urinary calculi; Z90.49 Acquired absence of other specified parts of digestive tract; Z98.1 Arthrodesis status; Z98.51 Tubal ligation status

== ENCOUNTER 2021-04-30 15:16 | Emergency (ER) | payer OTHER | END 2021-04-30 19:10 | disposition home or self-care (01) | LOC: ED 15:16 | DX: S93.401A Sprain of unspecified ligament of right ankle, initial encounter (principal); M79.671 Pain in right foot; F17.200 Nicotine dependence, unspecified, uncomplicated; W17.2XXA Fall into hole, initial encounter; Y93.89 Activity, other specified; Y92.89 Other specified places as the place of occurrence of the external cause; Y99.8 Other external cause status ==

== ENCOUNTER 2021-07-05 17:52 | Emergency (ER) | payer OTHER ==
[~2021-07-05] VITALS: Wt 90.7 kg
== END 2021-07-06 00:08 | disposition home or self-care (01) ==
LOC: ED 17:52
DX: R51.9 Headache, unspecified (principal)

== ENCOUNTER 2021-08-06 15:47 | Emergency (ER) | payer OTHER ==
[~2021-08-06] VITALS: Wt 90.7 kg
[2021-08-06] MEDS ORDERED: AMOXICILLIN500 M2 PO (16:34)
== END 2021-08-06 17:00 | disposition home or self-care (01) ==
LOC: ED 15:47
DX: J02.9 Acute pharyngitis, unspecified (principal); Z20.822 Contact with and (suspected) exposure to COVID-19; F17.200 Nicotine dependence, unspecified, uncomplicated; Z88.1 Allergy status to other antibiotic agents; Z90.49 Acquired absence of other specified parts of digestive tract; Z98.51 Tubal ligation status

== ENCOUNTER 2022-04-16 16:02 | Emergency (ER) | payer OTHER ==
[~2022-04-16] VITALS: Ht 175.3 cm; Wt 94.8 kg
[2022-04-16 17:00] LABS: BILIRUBIN Negative (Negative); BLOOD Trace-Intact (Negative); COLOR Yellow (Yellow); GLUCOSE Negative (Negative); KETONE Negative (Negative); LEUKO ESTERASE 3+ (Negative); NITRITE Negative (Negative); PH 6.5 (4.5-8.0); SPECIFIC GRAVITY 1.015 (1.001-1.030); UROBILINOGEN 0.2 E.U./dl (0.0-1.0)
[2022-04-16 17:09] LABS: CLARITY Cloudy (Clear)
[2022-04-16 17:10] LABS: BACTERIA 4+; EPITHELIAL CELLS TNTC; WBC TNTC wbc/hpf (0-5)
[2022-04-16] MEDS ORDERED: MACROBID100 M1 PO (17:27)
== END 2022-04-16 17:43 | disposition home or self-care (01) ==
LOC: ED 16:02
PROVIDERS: Physician Assistant
DX: N39.0 Urinary tract infection, site not specified (principal); Z88.1 Allergy status to other antibiotic agents; Z90.49 Acquired absence of other specified parts of digestive tract; Z98.51 Tubal ligation status

== ENCOUNTER 2022-07-06 14:17 | Emergency (ER) | payer OTHER ==
[~2022-07-06] VITALS: Wt 97.5 kg
[2022-07-06 16:46] LABS: BASO % 0.5 % (0.0-1.0); EOS # 0.4 10*3/uL (0.0-0.4); EOS % 5.1 % (1.0-4.0); HEMATOCRIT 40.6 % (37.0-47.0); LYMPH # 2.3 10*3/uL (1.3-4.4); LYMPH % 31.1 % (27.0-41.0); MEAN CELL VOLUME 86.4 fl (81.0-99.0); MEAN CORPUSCULAR HGB 28.5 pg (27.0-31.0); MEAN PLATELET VOLUME 11.7 fl (9.6-12.3); MONO # 0.6 10*3/uL (0.1-1.0); MONO % 8.6 % (3.0-9.0); NEUT # 4.1 10*3/uL (2.3-7.9); NEUT % 54.4 % (47.0-73.0); PLATELET COUNT AUTOMATED 176 10*3/uL (130-400); RED CELL DISTRI WIDTH 13.3 % (0-14.5); WHITE BLOOD COUNT 7.5 10*3/uL (4.8-10.8)
[2022-07-06 16:48] LABS: BILIRUBIN Negative (Negative); BLOOD Negative (Negative); CLARITY Clear (Clear); COLOR Yellow (Yellow); GLUCOSE Negative (Negative); KETONE Negative (Negative); LEUKO ESTERASE 1+ (Negative); NITRITE Negative (Negative); PH 6.5 (4.5-8.0); SPECIFIC GRAVITY <= 1.005 (1.001-1.030); UROBILINOGEN 0.2 E.U./dl (0.0-1.0)
[2022-07-06 17:00] LABS: ALKALINE PHOSPHATASE 70 U/L (46-116); BUN 10 mg/dl (9-23); CHLORIDE 104 mmol/L (98-107); CREATININE 0.77 mg/dL (0.55-1.02); LIPASE 30 U/L (12-53); SGPT/ALT 8 U/L (10-49); SODIUM 137 mmol/L (136-145); TOTAL PROTEIN 6.7 gm/dL (6.0-8.0)
[2022-07-06 17:32] LABS: BACTERIA 2+
[2022-07-06] MEDS ORDERED: ONDANSETRON HYDR4 M1 PO (18:54)
[2022-07-06] MEDS ORDERED: PROTONIX40 MG PO (18:54)
[2022-07-06] MEDS ORDERED: DICYCLOMINE HYD20 MG PO (18:54)
[2022-07-06] MEDS ORDERED: CEPHALEXIN500 M1 PO (18:54)
== END 2022-07-06 19:58 | disposition home or self-care (01) ==
LOC: ED 14:17
PROVIDERS: Physician Assistant
DX: K29.70 Gastritis, unspecified, without bleeding (principal); F10.90 Alcohol use, unspecified, uncomplicated; Z91.410 Personal history of adult physical and sexual abuse; F17.200 Nicotine dependence, unspecified, uncomplicated; F12.90 Cannabis use, unspecified, uncomplicated; Z98.51 Tubal ligation status; Z88.2 Allergy status to sulfonamides; Z90.49 Acquired absence of other specified parts of digestive tract

== ENCOUNTER 2022-11-26 04:02 | Emergency (ER) | payer OTHER ==
[~2022-11-26] VITALS: Ht 177.8 cm; Wt 104.3 kg
[~2022-11-26 04:02] MED LIST changes: +CEPHALEXIN500 M1 PO; +DICYCLOMINE HYD20 MG PO; +ONDANSETRON HYDR4 M1 PO
[2022-11-26] MEDS ORDERED: DULOXETINE HCL30 MG PO (04:14)
[2022-11-26] MEDS ORDERED: ALPRAZOLAM0.5 M3 PO (04:14)
== END 2022-11-26 06:42 | disposition home or self-care (01) ==
LOC: ED 04:02
DX: G43.909 Migraine, unspecified, not intractable, without status migrainosus (principal); R11.2 Nausea with vomiting, unspecified; H53.149 Visual discomfort, unspecified; F41.9 Anxiety disorder, unspecified; K21.9 Gastro-esophageal reflux disease without esophagitis; Z88.2 Allergy status to sulfonamides; Z88.8 Allergy status to other drugs, medicaments and biological substances; Z98.890 Other specified postprocedural states; Z90.49 Acquired absence of other specified parts of digestive tract; Z98.51 Tubal ligation status; F17.200 Nicotine dependence, unspecified, uncomplicated; F12.90 Cannabis use, unspecified, uncomplicated

== ENCOUNTER 2022-12-30 13:24 | Inpatient (IN) | payer OTHER ==
[~2022-12-30] VITALS: Ht 175.2 cm; Wt 113.4 kg
[~2022-12-30 13:24] MED LIST changes: +ALPRAZOLAM0.5 M3 PO; +DULOXETINE HCL30 MG PO
[2022-12-30 13:38] VITALS: BP 106/72
[2022-12-30 17:36] LABS: BASO % 0.4 % (0.0-1.0); EOS # 0.2 10*3/uL (0.0-0.4); EOS % 2.2 % (1.0-4.0); HEMATOCRIT 43.3 % (37.0-47.0); LYMPH % 30.2 % (27.0-41.0); MEAN CELL VOLUME 86.6 fl (81.0-99.0); MEAN CORPUSCULAR HGB 28.4 pg (27.0-31.0); MEAN CORPUSCULAR HGB CONC 32.8 g/dl (33.0-37.0); MEAN PLATELET VOLUME 11.8 fl (9.6-12.3); MONO # 0.9 10*3/uL (0.1-1.0); MONO % 8.5 % (3.0-9.0); NEUT # 5.9 10*3/uL (2.3-7.9); NEUT % 58.4 % (47.0-73.0); PLATELET COUNT AUTOMATED 213 10*3/uL (130-400); RED CELL DISTRI WIDTH 13.9 % (0-14.5)
[2022-12-30 17:47] LABS: BILIRUBIN Negative (Negative); BLOOD Negative (Negative); CLARITY Cloudy (Clear); COLOR Yellow (Yellow); GLUCOSE Negative (Negative); KETONE Negative (Negative); LEUKO ESTERASE 1+ (Negative); NITRITE Negative (Negative); SPECIFIC GRAVITY 1.025 (1.001-1.030)
[2022-12-30 17:47] LABS: ACT PARTIAL THROMBO TIME 28.9 SECONDS (20.0-32.1); INTERNATIONAL NORM RATIO 1.1 (2.0-3.5)
[2022-12-30 17:53] LABS: BACTERIA 2+; RBC 0-2 rbc/hpf (0-2)
[2022-12-30 17:58] LABS: ALKALINE PHOSPHATASE 63 U/L (46-116); BUN 9 mg/dl (9-23); CHLORIDE 103 mmol/L (98-107); LIPASE 33 U/L (12-53); POTASSIUM 3.5 mmol/L (3.4-5.1); SGPT/ALT 9 U/L (10-49)
[2022-12-30 21:57] VITALS: BP 99/56
[2022-12-31 04:58] VITALS: BP 105/55
[2022-12-31 06:12] LABS: BASO % 0.5 % (0.0-1.0); EOS # 0.3 10*3/uL (0.0-0.4); EOS % 3.6 % (1.0-4.0); HEMATOCRIT 41.8 % (37.0-47.0); LYMPH # 3.3 10*3/uL (1.3-4.4); LYMPH % 40.6 % (27.0-41.0); MEAN CELL VOLUME 87.3 fl (81.0-99.0); MEAN CORPUSCULAR HGB 28.4 pg (27.0-31.0); MEAN CORPUSCULAR HGB CONC 32.5 g/dl (33.0-37.0); MEAN PLATELET VOLUME 12.5 fl (9.6-12.3); MONO # 0.8 10*3/uL (0.1-1.0); NEUT # 3.6 10*3/uL (2.3-7.9); NEUT % 45.1 % (47.0-73.0); PLATELET COUNT AUTOMATED 199 10*3/uL (130-400); RED BLOOD COUNT 4.79 10*6/uL (4.10-5.10); WHITE BLOOD COUNT 8.1 10*3/uL (4.8-10.8)
[2022-12-31 07:44] LABS: ALKALINE PHOSPHATASE 71 U/L (46-116); BUN 10 mg/dl (9-23); CHLORIDE 105 mmol/L (98-107); CHOLESTEROL 160 mg/dL (<200); FREE T4 0.93 ng/dl (0.89-1.76); LDL CHOLESTEROL 96 mg/dL (9-159); SGPT/ALT 9 U/L (10-49); THYROID STIM HORMONE (HS) 2.134 uIU/ml (0.550-4.780); TOTAL PROTEIN 6.5 gm/dL (6.0-8.0); TRIGLYCERIDES 111 mg/dl (<150)
[2022-12-31 07:59] LABS: VITAMIN D, 25-HYDROXY 20.8 ng/mL (30-100)
[2022-12-31 11:47] VITALS: BP 104/47
[2022-12-31] MEDS ORDERED: MACROBID100 M1 PO (13:58)
[2022-12-31] MEDS ORDERED: PROTONIX40 MG PO (13:59)
== END 2022-12-31 14:56 | disposition home or self-care (01) | DRG 241 ==
LOC: ED 13:24 → EDHOLD 18:29
PROVIDERS: Internal Medicine; Student in an Organized Health Care Education/Training Program; ADMIT Internal Medicine; ATTEND Internal Medicine
DX: K29.70 Gastritis, unspecified, without bleeding (principal); K92.0 Hematemesis; F17.210 Nicotine dependence, cigarettes, uncomplicated; N30.00 Acute cystitis without hematuria; K21.9 Gastro-esophageal reflux disease without esophagitis; Z88.2 Allergy status to sulfonamides; Z88.8 Allergy status to other drugs, medicaments and biological substances; Z98.51 Tubal ligation status; Z90.49 Acquired absence of other specified parts of digestive tract; Z79.899 Other long term (current) drug therapy; Z71.6 Tobacco abuse counseling

== ENCOUNTER 2023-03-23 13:45 | Emergency (ER) | payer OTHER ==
[~2023-03-23] VITALS: Ht 274.3 cm; Wt 113.4 kg
== END 2023-03-23 16:38 | disposition left against medical advice (07) ==
LOC: ED 13:45
DX: J02.9 Acute pharyngitis, unspecified (principal); Z53.21 Procedure and treatment not carried out due to patient leaving prior to being seen by health care provider

== ENCOUNTER 2023-03-24 13:54 | Emergency (ER) | payer OTHER ==
[~2023-03-24] VITALS: Wt 113.4 kg
== END 2023-03-24 18:57 | disposition home or self-care (01) ==
LOC: ED 13:54
DX: J06.9 Acute upper respiratory infection, unspecified (principal); H92.01 Otalgia, right ear; K21.9 Gastro-esophageal reflux disease without esophagitis; Z88.2 Allergy status to sulfonamides; Z88.8 Allergy status to other drugs, medicaments and biological substances; Z90.49 Acquired absence of other specified parts of digestive tract; Z98.51 Tubal ligation status; Z98.890 Other specified postprocedural states; F12.90 Cannabis use, unspecified, uncomplicated; F17.200 Nicotine dependence, unspecified, uncomplicated; Z20.822 Contact with and (suspected) exposure to COVID-19

== ENCOUNTER 2023-05-02 21:05 | Emergency (ER) | payer OTHER ==
[~2023-05-02] VITALS: Ht 177.8 cm; Wt 113.4 kg
[2023-05-02] MEDS ORDERED: NAPROXEN250 MG PO (23:35)
== END 2023-05-03 00:21 | disposition home or self-care (01) ==
LOC: ED 21:05
DX: S93.402A Sprain of unspecified ligament of left ankle, initial encounter (principal); S93.602A Unspecified sprain of left foot, initial encounter; S60.211A Contusion of right wrist, initial encounter; K21.9 Gastro-esophageal reflux disease without esophagitis; Z88.2 Allergy status to sulfonamides; Z88.8 Allergy status to other drugs, medicaments and biological substances; Z98.51 Tubal ligation status; Z90.49 Acquired absence of other specified parts of digestive tract; Z98.890 Other specified postprocedural states; F17.200 Nicotine dependence, unspecified, uncomplicated; F12.90 Cannabis use, unspecified, uncomplicated; W10.8XXA Fall (on) (from) other stairs and steps, initial encounter; Y93.89 Activity, other specified; Y92.009 Unspecified place in unspecified non-institutional (private) residence as the place of occurrence of the external cause; Y99.8 Other external cause status

== ENCOUNTER 2023-06-08 16:28 | Emergency (ER) | payer OTHER ==
[~2023-06-08] VITALS: Ht 177.8 cm; Wt 113.4 kg
[~2023-06-08 16:28] MED LIST changes: +NAPROXEN250 MG PO
[2023-06-08 18:05] LABS: BILIRUBIN Negative (Negative); BLOOD 2+ (Negative); CLARITY Clear (Clear); COLOR Yellow (Yellow); GLUCOSE Negative (Negative); KETONE Negative (Negative); LEUKO ESTERASE Negative (Negative); NITRITE Negative (Negative); SPECIFIC GRAVITY 1.015 (1.001-1.030)
[2023-06-08 18:24] LABS: BACTERIA 3+
[2023-06-08 19:22] LABS: BASO # 0.1 10*3/uL (0.0-0.1); BASO % 0.7 % (0.0-1.0); EOS # 0.2 10*3/uL (0.0-0.4); EOS % 2.6 % (1.0-4.0); HEMATOCRIT 40.9 % (37.0-47.0); LYMPH # 2.9 10*3/uL (1.3-4.4); LYMPH % 32.3 % (27.0-41.0); MEAN CELL VOLUME 87.6 fl (81.0-99.0); MEAN CORPUSCULAR HGB 29.1 pg (27.0-31.0); MEAN CORPUSCULAR HGB CONC 33.3 g/dl (33.0-37.0); MEAN PLATELET VOLUME 11.1 fl (9.6-12.3); MONO # 0.7 10*3/uL (0.1-1.0); MONO % 7.6 % (3.0-9.0); NEUT # 5.1 10*3/uL (2.3-7.9); NEUT % 56.5 % (47.0-73.0); PLATELET COUNT AUTOMATED 226 10*3/uL (130-400); RED BLOOD COUNT 4.67 10*6/uL (4.10-5.10); RED CELL DISTRI WIDTH 13.4 % (0-14.5); WHITE BLOOD COUNT 9.1 10*3/uL (4.8-10.8)
[2023-06-08 19:45] LABS: ALKALINE PHOSPHATASE 78 U/L (46-116); BUN 7 mg/dl (9-23); CHLORIDE 106 mmol/L (98-107); POTASSIUM 3.9 mmol/L (3.4-5.1); TOTAL PROTEIN 6.7 gm/dL (6.0-8.0)
[2023-06-08 20:00] LABS: SGPT/ALT < 7 U/L (5-49)
[2023-06-08] MEDS ORDERED: CIPRO500 MG PO (20:41)
== END 2023-06-08 20:50 | disposition home or self-care (01) ==
LOC: ED 16:28
PROVIDERS: Family Medicine; Nurse Practitioner Family
DX: N39.0 Urinary tract infection, site not specified (principal); E87.1 Hypo-osmolality and hyponatremia; K21.9 Gastro-esophageal reflux disease without esophagitis; G43.909 Migraine, unspecified, not intractable, without status migrainosus; Z88.2 Allergy status to sulfonamides; Z88.8 Allergy status to other drugs, medicaments and biological substances; Z90.49 Acquired absence of other specified parts of digestive tract; Z98.51 Tubal ligation status; Z98.890 Other specified postprocedural states; F17.200 Nicotine dependence, unspecified, uncomplicated; F12.90 Cannabis use, unspecified, uncomplicated

== ENCOUNTER 2023-09-14 16:16 | Emergency (ER) | payer OTHER ==
[~2023-09-14] VITALS: Ht 177.8 cm; Wt 113.4 kg
[~2023-09-14 16:16] MED LIST changes: +CIPRO500 MG PO
== END 2023-09-14 17:40 | disposition left against medical advice (07) ==
LOC: ED 16:16
DX: S99.922A Unspecified injury of left foot, initial encounter (principal); Z88.2 Allergy status to sulfonamides; Z88.8 Allergy status to other drugs, medicaments and biological substances; Z53.21 Procedure and treatment not carried out due to patient leaving prior to being seen by health care provider; X58.XXXA Exposure to other specified factors, initial encounter; Y93.89 Activity, other specified; Y92.89 Other specified places as the place of occurrence of the external cause; Y99.8 Other external cause status

== ENCOUNTER 2023-09-30 16:38 | Emergency (ER) | payer OTHER ==
[~2023-09-30] VITALS: Ht 177.8 cm; Wt 113.4 kg
[2023-09-30] MEDS ORDERED: Ondansetron Hydrochloride 4 MG TAB PO ONE (16:55)
[2023-09-30] MEDS ORDERED: TAMIFLU 75MG CA75 MG PO (17:57)
[2023-09-30] MEDS ORDERED: ONDANSETRON4 MG SL (17:57)
== END 2023-09-30 18:19 | disposition home or self-care (01) ==
LOC: ED 16:38
DX: J10.1 Influenza due to other identified influenza virus with other respiratory manifestations (principal); Z20.822 Contact with and (suspected) exposure to COVID-19; F12.90 Cannabis use, unspecified, uncomplicated; K21.9 Gastro-esophageal reflux disease without esophagitis; Z88.2 Allergy status to sulfonamides; Z88.8 Allergy status to other drugs, medicaments and biological substances; Z98.890 Other specified postprocedural states; Z98.51 Tubal ligation status; Z90.49 Acquired absence of other specified parts of digestive tract; F17.210 Nicotine dependence, cigarettes, uncomplicated

== ENCOUNTER 2023-11-03 16:29 | Emergency (ER) | payer OTHER ==
[~2023-11-03] VITALS: Ht 177.8 cm; Wt 113.4 kg
[~2023-11-03 16:29] MED LIST changes: +ONDANSETRON4 MG SL; +TAMIFLU 75MG CA75 MG PO
[2023-11-03] MEDS ORDERED: SODIUM CHLORIDE 0.9% 1,000 ML IV ONE ×2 (16:45→17:20)
[2023-11-03] MEDS ORDERED: diphenhydrAMINE hydrochloride 50 MG/ML VIAL IV ONE (16:45)
[2023-11-03] MEDS ORDERED: Ketorolac Tromethamine 30 MG/ML VIAL IV ONE (16:45)
[2023-11-03] MEDS ORDERED: Metoclopramide Hydrochloride 10 MG/2 ML AMP IV ONE (16:45)
[2023-11-03] MEDS ORDERED: Dexamethasone Sodium Phospha 20 MG/5 ML VIAL IV ONE (16:45)
[2023-11-03] MEDS ORDERED: Ketorolac Tromethamine 15 MG/ML VIAL IV ONE (17:20)
== END 2023-11-03 17:40 | disposition home or self-care (01) ==
LOC: ED 16:29
DX: G43.909 Migraine, unspecified, not intractable, without status migrainosus (principal); K21.9 Gastro-esophageal reflux disease without esophagitis; Z88.2 Allergy status to sulfonamides; Z88.8 Allergy status to other drugs, medicaments and biological substances; Z98.51 Tubal ligation status; Z90.49 Acquired absence of other specified parts of digestive tract; Z98.890 Other specified postprocedural states; F17.200 Nicotine dependence, unspecified, uncomplicated; F12.90 Cannabis use, unspecified, uncomplicated

== ENCOUNTER 2023-11-24 16:21 | Emergency (ER) | payer OTHER ==
[~2023-11-24] VITALS: Ht 175.2 cm; Wt 113.4 kg
[2023-11-24] MEDS ORDERED: Ketorolac Tromethamine 30 MG/ML VIAL IM ONE (16:45)
[2023-11-24] MEDS ORDERED: methylPREDNISolone sod succ 125 MG VIAL IM ONE (16:45)
== END 2023-11-24 17:58 | disposition home or self-care (01) ==
LOC: ED 16:21
DX: S39.012A Strain of muscle, fascia and tendon of lower back, initial encounter (principal); K21.9 Gastro-esophageal reflux disease without esophagitis; Z88.2 Allergy status to sulfonamides; Z88.8 Allergy status to other drugs, medicaments and biological substances; Z98.51 Tubal ligation status; Z90.49 Acquired absence of other specified parts of digestive tract; Z98.890 Other specified postprocedural states; F17.200 Nicotine dependence, unspecified, uncomplicated; F12.90 Cannabis use, unspecified, uncomplicated; W10.9XXA Fall (on) (from) unspecified stairs and steps, initial encounter; Y93.89 Activity, other specified; Y92.009 Unspecified place in unspecified non-institutional (private) residence as the place of occurrence of the external cause; Y99.8 Other external cause status

== ENCOUNTER 2024-02-09 23:42 | Emergency (ER) | payer OTHER ==
[~2024-02-09] VITALS: Ht 7620 cm; Wt 113.4 kg
[2024-02-10 00:22] LABS: BILIRUBIN Negative (Negative); BLOOD 3+ (Negative); CLARITY Cloudy (Clear); COLOR Orange (Yellow); GLUCOSE Negative (Negative); KETONE Negative (Negative); LEUKO ESTERASE 1+ (Negative); NITRITE Negative (Negative); SPECIFIC GRAVITY >= 1.030 (1.001-1.030)
[2024-02-10 00:32] LABS: BACTERIA 2+; EPITHELIAL CELLS 41-50
[2024-02-10 00:33] LABS: RBC 21-30 rbc/hpf (0-2)
[2024-02-10] MEDS ORDERED: Ciprofloxacin Hydrochloride 500 MG TAB PO ONE (00:35)
[2024-02-10] MEDS ORDERED: Ondansetron Hydrochloride 4 MG TAB SL ONE (00:35)
[2024-02-10] MEDS ORDERED: Ketorolac Tromethamine 60 MG/2 ML VIAL IM ONE (00:35)
[2024-02-10] MEDS ORDERED: CIPRO500 MG PO (00:43)
== END 2024-02-10 00:55 | disposition home or self-care (01) ==
LOC: ED 23:42
PROVIDERS: Internal Medicine
DX: N39.0 Urinary tract infection, site not specified (principal); R11.2 Nausea with vomiting, unspecified; F17.200 Nicotine dependence, unspecified, uncomplicated; Z88.2 Allergy status to sulfonamides; Z98.51 Tubal ligation status; Z90.49 Acquired absence of other specified parts of digestive tract

== ENCOUNTER 2024-10-21 13:42 | Emergency (ER) | payer OTHER ==
[~2024-10-21] VITALS: Ht 175.2 cm; Wt 113.4 kg
[2024-10-21] MEDS ORDERED: Ondansetron Hydrochloride 4 MG/2 ML VIAL IV ONE (13:55)
[2024-10-21] MEDS ORDERED: SODIUM CHLORIDE 0.9% 1,000 ML IV ONE (13:55)
[2024-10-21] MEDS ORDERED: FAMOTIDINE 50 ML IV ONE (13:55)
[2024-10-21] MEDS ORDERED: MORPHINE Sulfate 2 MG/ML SYR IV ONE (13:55)
[2024-10-21 14:12] LABS: BASO % 0.5 % (0.0-1.0); EOS # 0.3 10*3/uL (0.0-0.4); EOS % 3.2 % (1.0-4.0); HEMATOCRIT 38.8 % (37.0-47.0); MEAN CELL VOLUME 86.2 fl (81.0-99.0); MEAN CORPUSCULAR HGB 27.8 pg (27.0-31.0); MEAN CORPUSCULAR HGB CONC 32.2 g/dl (33.0-37.0); MONO # 0.5 10*3/uL (0.1-1.0); MONO % 5.8 % (3.0-9.0); NEUT # 5.4 10*3/uL (2.3-7.9); NEUT % 66.4 % (47.0-73.0); PLATELET COUNT AUTOMATED 207 10*3/uL (130-400); RED CELL DISTRI WIDTH 13.7 % (0-14.5); WHITE BLOOD COUNT 8.1 10*3/uL (4.8-10.8)
[2024-10-21 14:30] LABS: BUN 10 mg/dl (9-23); CHLORIDE 108 mmol/L (98-107); POTASSIUM 4.1 mmol/L (3.4-5.1)
[2024-10-21 14:50] LABS: BILIRUBIN Negative (Negative); BLOOD Negative (Negative); CLARITY Cloudy (Clear); COLOR Yellow (Yellow); GLUCOSE Negative (Negative); KETONE Negative (Negative); LEUKO ESTERASE 1+ (Negative); NITRITE Positive (Negative); PH 5.5 (4.5-8.0)
[2024-10-21] MEDS ORDERED: cefTRIAXone Sodium 1 GM/10 ML SYR IV ONE (15:00)
[2024-10-21 15:01] LABS: BACTERIA 4+; EPITHELIAL CELLS 16-20
[2024-10-21] MEDS ORDERED: CIPRO500 MG PO (15:03)
[2024-10-21] MEDS ORDERED: DICYCLOMINE HYD20 MG PO (15:03)
== END 2024-10-21 15:57 | disposition home or self-care (01) ==
LOC: ED 13:42
PROVIDERS: Emergency Medicine
DX: N39.0 Urinary tract infection, site not specified (principal); R10.30 Lower abdominal pain, unspecified; F32.A Depression, unspecified; F41.9 Anxiety disorder, unspecified; F17.200 Nicotine dependence, unspecified, uncomplicated; Z88.2 Allergy status to sulfonamides; Z90.49 Acquired absence of other specified parts of digestive tract

== ENCOUNTER 2025-02-05 15:23 | Emergency (ER) | payer OTHER ==
[~2025-02-05] VITALS: Ht 175.2 cm; Wt 113.4 kg
[2025-02-05] MEDS ORDERED: SODIUM CHLORIDE 0.9% 1,000 ML IV ONE (16:05)
[2025-02-05] MEDS ORDERED: Ondansetron Hydrochloride 4 MG/2 ML VIAL IV ONE (16:10)
[2025-02-05] MEDS ORDERED: diphenhydrAMINE hydrochloride 50 MG/ML VIAL IV ONE (16:10)
[2025-02-05 16:21] LABS: BASO # 0.1 10*3/uL (0.0-0.1); BASO % 0.5 % (0.0-1.0); EOS # 0.4 10*3/uL (0.0-0.4); EOS % 3.5 % (1.0-4.0); MEAN CELL VOLUME 86.8 fl (81.0-99.0); MEAN CORPUSCULAR HGB 28.3 pg (27.0-31.0); MEAN PLATELET VOLUME 11.6 fl (9.6-12.3); MONO # 0.7 10*3/uL (0.1-1.0); MONO % 6.2 % (3.0-9.0); NEUT # 7.5 10*3/uL (2.3-7.9); NEUT % 69.8 % (47.0-73.0); NUCLEATED RED BLOOD CELL 0.0 % (0.0-0.0); NUCLEATED RED BLOOD CELL 0.0 10*3/uL (0.0-0.0); PLATELET COUNT AUTOMATED 196 10*3/uL (130-400); RED CELL DISTRI WIDTH 13.9 % (0-14.5)
[2025-02-05 16:45] LABS: BUN 18 mg/dl (9-23)
[2025-02-05] MEDS ORDERED: Dexamethasone Sodium Phospha 10 MG/1 ML VIAL IV ONE (17:35)
== END 2025-02-05 17:52 | disposition home or self-care (01) ==
LOC: ED 15:23
PROVIDERS: Nurse Practitioner Family
DX: B34.9 Viral infection, unspecified (principal); G43.909 Migraine, unspecified, not intractable, without status migrainosus; K21.9 Gastro-esophageal reflux disease without esophagitis; F17.210 Nicotine dependence, cigarettes, uncomplicated; F12.90 Cannabis use, unspecified, uncomplicated; F10.90 Alcohol use, unspecified, uncomplicated; Z20.822 Contact with and (suspected) exposure to COVID-19; Z88.1 Allergy status to other antibiotic agents; Z88.8 Allergy status to other drugs, medicaments and biological substances; Z87.440 Personal history of urinary (tract) infections; Z98.51 Tubal ligation status; Z90.49 Acquired absence of other specified parts of digestive tract; Y90.9 Presence of alcohol in blood, level not specified

== ENCOUNTER 2025-02-06 15:07 | Emergency (ER) | payer OTHER ==
[~2025-02-06] VITALS: Ht 175.2 cm; Wt 113.4 kg
[2025-02-06] MEDS ORDERED: ACETAMINOPHEN 325 MG TAB PO ONE (16:35)
== END 2025-02-06 16:44 | disposition home or self-care (01) ==
LOC: ED 15:07
DX: B34.9 Viral infection, unspecified (principal); G43.909 Migraine, unspecified, not intractable, without status migrainosus; K21.9 Gastro-esophageal reflux disease without esophagitis; F12.90 Cannabis use, unspecified, uncomplicated; F17.200 Nicotine dependence, unspecified, uncomplicated; Z79.899 Other long term (current) drug therapy; Z88.1 Allergy status to other antibiotic agents; Z88.2 Allergy status to sulfonamides; Z90.49 Acquired absence of other specified parts of digestive tract; Z98.51 Tubal ligation status; Z98.890 Other specified postprocedural states